=== PATIENT | male | born 2000 | race Caucasian/White ===

== ENCOUNTER 2024-08-27 11:18 | Outpatient (CLI) | payer BC, SELFPAY | END 2024-08-27 11:19 | disposition home or self-care (01) | LOC: NFLDUCREF 11:20 | DX: B96.89 Other specified bacterial agents as the cause of diseases classified elsewhere (principal); L29.9 Pruritus, unspecified; H10.31 Unspecified acute conjunctivitis, right eye; T14.8XXA Other injury of unspecified body region, initial encounter | CPT/HCPCS: 87070 ==

== ENCOUNTER 2024-08-28 17:07 | Outpatient (CLI) | payer MEDICARE, BC, MEDICAID, SELFPAY | END 2024-08-28 17:08 | disposition home or self-care (01) | LOC: AMB 09-08 23:44 | PROVIDERS: Visit Provider Family Medicine | DX: F91.9 Conduct disorder, unspecified (principal) | CPT/HCPCS: A0425; A0427 ==

== ENCOUNTER 2024-08-28 17:32 | Emergency (ER) | payer BC, SELFPAY ==
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
[2024-08-28 17:44] VITALS: BP 127/77; PULSE 88; RESP 16; TEMP 36.1; O2SAT 99
== END 2024-08-28 19:26 | disposition home or self-care (01) ==
LOC: ED 18:32
PROVIDERS: Emergency Provider Family Medicine
DX: R45.1 Restlessness and agitation (principal); F99 Mental disorder, not otherwise specified
CPT/HCPCS: 99283

== ENCOUNTER 2024-08-28 19:52 | Outpatient (CLI) | payer MEDICARE, BC, MEDICAID, SELFPAY | END 2024-08-28 19:53 | disposition home or self-care (01) | LOC: AMB 09-09 00:28 | PROVIDERS: Visit Provider Family Medicine | DX: F91.9 Conduct disorder, unspecified (principal) | CPT/HCPCS: A0425; A0427 ==

== ENCOUNTER 2024-08-28 20:17 | Emergency (ER) | payer MEDICARE, MEDICAID, SELFPAY ==
[2024-08-28] VITALS (19 sets, daily range): BP systolic 118–120; BP diastolic 72–88; PULSE 63–89; RESP 18; TEMP 36.7; O2SAT 93–99; BMI 35.0
[2024-08-28] MEDS: OLANZapine 5 MG/ML inj 10 MG IM (21:23)
--- NOTE | 2024-08-28 23:41 | ED.NURSE ---
Pt is calm and cooperative, is resting in bed at this time.
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
[2024-08-29] VITALS (38 sets, daily range): BP systolic 114–130; BP diastolic 75–89; PULSE 58–81; RESP 18; TEMP 36.6; O2SAT 88–100
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
--- NOTE | 2024-08-29 01:31 | ED.NURSE ---
Pt is resting in bed, is appearing to be calm and cooperative at this time.
--- NOTE | 2024-08-29 02:00 | ED.NURSE ---
Pt is resting in room, is calm and cooperative at this time.
--- NOTE | 2024-08-29 03:28 | ED.NURSE ---
The pt is calm and cooperative, is resting at this time.
--- NOTE | 2024-08-29 04:18 | ED.NURSE ---
Pt is calm and cooperative, is resting at this time.
--- NOTE | 2024-08-29 05:06 | ED.NURSE ---
Pt is resting, is calm and cooperative at this time
--- NOTE | 2024-08-29 06:15 | ED.NURSE ---
Pt is resting, is calm and cooperative at this time.
== END 2024-08-29 13:41 | disposition home or self-care (01) ==
PROVIDERS: Emergency Provider Family Medicine
DX: R45.6 Violent behavior (principal); R45.1 Restlessness and agitation
CPT/HCPCS: 87070; 94761; 96372; 99283; 99284

== ENCOUNTER 2024-09-04 15:32 | Outpatient (CLI) | payer MEDICARE, BC, SELFPAY ==
[2024-09-04 17:39] LABS: Cholesterol* 182 mg/dL (90-199)
[2024-09-04 17:40] LABS: Glucose* 89 mg/dL (60-115); HDL Cholesterol* 48 mg/dL (>=40); LDL Cholesterol Calculated 108 mg/dL (<100); Triglycerides* 131 mg/dL (40-149)
[2024-09-04 17:43] LABS: Hemoglobin A1C* 4.8 % (0-5.6)
[2024-09-04 22:22] LABS: Hepatitis C Virus Antibody* Negative (Negative)
[2024-09-04 22:23] LABS: HIV 1/2/P24 Combo Screen* Negative (Negative)
== END 2024-09-04 15:33 | disposition home or self-care (01) ==
PROVIDERS: Visit Provider Family Medicine
DX: Z13.6 Encounter for screening for cardiovascular disorders (principal); Z13.1 Encounter for screening for diabetes mellitus; Z11.59 Encounter for screening for other viral diseases; Z11.4 Encounter for screening for human immunodeficiency virus [HIV]; Q87.11 Prader-Willi syndrome
CPT/HCPCS: 36415; 80061; 82947; 83036; 86703; 86803